=== PATIENT | male | born 2000 | race Caucasian/White ===

== ENCOUNTER 2025-01-12 13:03 | Emergency (ER) | payer MEDICAID ==
[~2025-01-12] VITALS: Ht 167.6 cm; Wt 60.0 kg
[2025-01-12 13:12] VITALS: O2SAT 100
[2025-01-12] MEDS: FLUORESCEIN SODIUM 1MG/STRIP LEFTEYE ONE (14:07)
[2025-01-12] MEDS: TETRACAINE 0.5% OPHTH DROPS 4ML LEFTEYE ONE (14:08)
[2025-01-12] MEDS ORDERED: TOBRO EACHEYE (15:37)
[2025-01-12 15:45] VITALS: BP 123/81; PULSE 75; RESP 16; TEMP 36.8; O2SAT 100
== END 2025-01-12 15:50 | disposition home or self-care (01) ==
LOC: ER 13:03
DX: H10.32 Unspecified acute conjunctivitis, left eye (principal)
CPT/HCPCS: 99283